=== PATIENT | female | born 1950 | race Caucasian/White ===

== ENCOUNTER 2021-07-10 15:15 | Outpatient (REF) | payer MEDICARE, SELFPAY ==
[2021-07-11 17:55] LABS: Rheumatoid Factor <8.6 IU/mL (<12.0)
[2021-07-12 09:44] LABS: IgA 171 mg/dL (85-499); IgG 719 mg/dL (610-1,616); IgM 57 mg/dL (35-242)
[2021-07-12 09:49] LABS: Cyclic Citrullinated Peptide <2.5 U/mL (<5.0)
[2021-07-12 10:31] LABS: IgE 4 IU/mL (<158)
[2021-07-12 14:07] LABS: dsDNA Ab, IgG <12.3 IU/mL (<30.0)
[2021-07-12 14:50] LABS: ANA Interpretation Positive (Negative); ANA Titer Pattern 1:160 Homogeneous
== END 2021-07-10 15:16 | disposition home or self-care (01) ==
LOC: LBN 15:15
PROVIDERS: PCP Internal Medicine; Visit Provider Student in an Organized Health Care Education/Training Program
DX: J18.9 Pneumonia, unspecified organism (principal); R93.89 Abnormal findings on diagnostic imaging of other specified body structures
CPT/HCPCS: 82784; 86200; 82785; 82787; 86038; 86225; 86431

== ENCOUNTER 2021-08-06 01:19 | Outpatient (CLI) | payer MEDICARE, SELFPAY ==
[2021-08-06 12:50] LABS: Source Nasal/Nares
[2021-08-06 20:23] LABS: COVID-19 PCR Negative (Negative)
== END 2021-08-06 01:20 | disposition home or self-care (01) ==
LOC: LBO 01:19
PROVIDERS: PCP Internal Medicine; Visit Provider Student in an Organized Health Care Education/Training Program
DX: Z20.822 Contact with and (suspected) exposure to COVID-19 (principal); Z01.818 Encounter for other preprocedural examination
CPT/HCPCS: 87635; U0005

== ENCOUNTER 2021-08-07 07:17 | Day surgery (SDC) | payer MEDICARE, SELFPAY ==
--- NOTE | 2021-08-06 14:15 | W.ANESPRE ---
General Info Date of Service Date Performed: 08/07/21 Height: 4 ft 11 in Weight: 60.328 kg Body Mass Index (BMI): 26.9 Surgical Procedure: Operation Date: 08/07/21 09:10 Proposed Procedure Side Surgeon johnson Vazquez MD Meds Allergies and Home Medications Allergies Allergy/AdvReac Type Severity Reaction Status Date / Time Tetracyclines AdvReac Unknown Verified 08/07/21 07:38 Home Medication Medication Instructions Recorded alcohol swabs (BD Alcohol Swabs) pad TOPICAL .2xd ea 07/02/21 aspirin 81 mg tablet,delayed 81 mg PO DAILY 07/02/21 release (Enteric Coated Aspirin) ciclopirox 8 % topical solution 1 applic TOPICAL QHS PRN 07/02/21 diltiazem HCl 360 mg 360 mg PO DAILY 07/02/21 capsule,extended release 24 hr dulaglutide 1.5 mg/0.5 mL 1.5 mg SUBCUT QWEEK 07/02/21 subcutaneous pen injector (Trulicity) loratadine 10 mg tablet 10 mg PO DAILY 07/02/21 metformin 1,000 mg tablet 1,000 mg PO BID 07/02/21 metoprolol succinate 25 mg 25 mg PO DAILY 07/02/21 tablet,extended release 24 hr omeprazole 20 mg capsule,delayed 20 mg PO DAILY 07/02/21 release pen needle, diabetic 31 gauge x #1200 ea 07/02/21 5/16 (BD Ultra-Fine Short Pen Needle) PFSH Active Problems Active Problems: Problem Status Onset Code Diabetes mellitus E11.9 Vitamin B deficiency E53.9 Hyperlipidemia E78.5 Obesity E66.9 Anemia D64.9 Essential hypertension I10 Allergic rhinitis J30.9 Inflammatory disease of liver K75.9 Tachycardia R00.0 Recurrent pneumonia J18.[address] R93.89 Medical History Medical History Disorder of adrenal gland Moderate aortic regurgitation Moderate mitral valve regurgitation Surgical History Surgical History History of cholecystectomy 05/26/1999 History of colonoscopy onset:11/08/2013 History of tonsillectomy 05/26/1954 History of tubal ligation 05/26/1978 Hx of appendectomy 05/26/1978 Hx of biopsy gastroesophageal junction 11/08/2013 Tobacco Smoking/Tobacco Use Status: Former Tobacco Use Alcohol Alcohol Intake: current Alcohol intake frequency: holidays/special occasions only Substance Use Substance use: Never Substance use type: does not use Vital Signs and Lab Results Lab Results Blood Type / Crossmatch: No Data to Display Complete Blood Count: No Data to Display Complete Metabolic Panel: No Data to Display Liver Function Panel: No Data to Display Coagulation Panel: No Data to Display Cardiac Panel: No Data to Display Arterial Blood Gas: No Data to Display Venous Blood Gas: No Data to Display Pancreas Panel: No Data to Display Thyroid Panel: No Data to Display Infectious Disease: Coronavirus (COVID-19)(PCR) Negative (Negative) 08/06/21 10:45 08/06/21 Coronavirus 2019 Source Nasal/Nares 08/06/21 10:45 08/06/21 Blood Cultures: No Data to Display Toxicology Panel: No Data to Display Imaging and Studies Imaging and Studies Study information below may be from another EMR and interpreted by another provider. Please see original notes in EMR for more complete details. Echocardiogram Summary: 03/2021: LVEF 65%, mild-mod , mild-mod MR, mod PHTN 40-50 mmhg Pulmonary Function Summary: 07/20/21: normal fxn. Anesthesia Assessment and Plan Anesthesia History Personal History: No History of Anesthesia Complications Family History: No Family History of Anesthesia Complications Exercise Tolerance Exercise Tolerance: Metabolic Equivalents<4 Pertinent Negatives Pertinent Negatives: No Symptoms of GERD, No Major Cardiovascular Symptoms or Complaints and No Major Pulmonary Symptoms or Complaints (Current pneumonia, quit smoking about 20 years ago) Cardiac & Pulmonary Exam Cardiac Exam: Normal S1/S2 Heart Sounds Pulmonary Exam: Rhonchi Present and Active Cough or Cold (Active pneumonia ) Implantable Cardiac Device Does patient have a Pacemaker or an ICD?: No Airway Exam Known Difficult Airway: No Mallampati Class: 3 Mouth Opening: Normal (> 3cm) Thyromental Distance: Greater than 3 cm Neck Range of Motion: Full ROM Neck Circumference: Normal Teeth Condition: Removable Dentures/Plates Upper and Edentulous ASA Classification ASA Score: ASA 3 Emergency Case?: No NPO Status NPO Status: NPO Clears >2 hours, Solids >8 hours Anesthesia Plan Resuscitation Status: Full Code Anesthesia Technique: MAC Anesthesia Airway Planned: Natural Airway Monitors Used: Standard Monitors Preoperative Comments:: 70 yo female for bronch with sedation due to recurrent pneumonia. Sig PMHx: mod , mod pHTN, DM, HTN, tachycardia, former smoker.
[2021-08-07 07:32] VITALS: BP 152/77; PULSE 88; RESP 22; TEMP 36.3; O2SAT 97
[2021-08-07] MEDS: Lactated Ringers 1,000 ML 75 ML IV (08:06)
[2021-08-07] MEDS: Lidocaine 2% Viscous 15 ML CUP (09:21)
[2021-08-07] MEDS: Lidocaine 1% Multi-Dose 50 ML VIAL (09:34)
[2021-08-07] MEDS: Lidocaine 2% Multi-Dose 50 ML VIAL (09:35)
--- NOTE | 2021-08-07 09:45 | PAPNONF_PTH ---
PATIENT: Tiffanie Shell LOC: [facility] U#:[id number] AGE/SX: 70/F ROOM: RE08/07/[address]: Sandra Vazquez MD : [id number] BED: DIS: 08/07/2021 SPEC #: [id number] RECD: 08/07/21 12:47 STATUS: TAO REQ #: [id number] VANGIE: 08/07/21 09:[address]: Sandra Vazquez DEPT: [facility] Cytology RECD BY: [place],Tiffanie ENTERED: 08/07/21 12:48 SP TYPE: ELSI SINGH DR: Jennifer Conroy Tissues: 1 - BODY FLUID CYTO(NOT S/U/N/EM)[facility] Procedures: BODY FLUID CYTO(NOT SPU/UR/NIP/ENDOM)[facility] Comments: [id number] (TOTAL VOLUME = 20 ml, SENT FRESH)
[2021-08-07 09:58] VITALS: BP 142/97; PULSE 74; RESP 24; TEMP 36.5; O2SAT 93
--- NOTE | 2021-08-07 10:15 | ROE_ITS ---
Date of service: 08/07/21 Time of Service: 09:30 Operative Note Operative Note Refer to Anesthesia Record Procedure Description: Bronchoscopy Date:08/07/21 Time:929 Indication:Abnormal Chest CT Procedure performed: Flexible bronchoscopy with broncheoalveolar lavage Sedation plan: Conscious sedation Medications used: please see seperate anesthesia documentation Informed consent was obtained after the risks and benefits or the procedure were discussed. The patient?s bilateral nasal passage was numbed with 2% topical lidocaine using cotton swabs. The patient also gurgled 2% lidocaine three times (15mL) and spit out into a kidney basin. A proper and complete OR compliant time out was performed. The therapeutic 6.2mm Olympus bronchoscope was inserted through the left nares and the vocal cords wer e visualized. The vocal cords were normal in appearance and normal function. 2cc of 2% topical lidocaine was used to anesthetize the vocal cords. The bronchoscope was inserted into the airways, where 3cc in total of 1% topical lidocaine was used the anesthetize the airways. The trachea was midline and without lesion or injury. The mucosa appeared normal and there were no signs of tracheomalacia. The jeanna was sharp. All bronchial subsegments were visualized within each lobe and showed no evidence of mucus, erythema or injury. A bronchoalveolar lavage was performed in the right upper lobe anterior segment. A total of 180 cc of saline was administered with a return of 55 cc. The fluid was slightly cloudy in appearance with visual cellular debris. The airways were inspected to verify there was no bleeding seen after BAL, which there was not. The bronchoscope was then removed and the case terminated. The patient was taken to the day surgery unit in stable condition. Samples collected:RUL BAL Testing ordered:cell differential, bacterial, fungal and AFB cultures and cytology Complications:None Sandra Vazquez MD Pulmonary & Critical Care Medicine
[2021-08-07 10:20] VITALS: BMI 26.9
--- NOTE | 2021-08-07 10:21 | W.ANESPOSTOP ---
Postoperative Evaluation Date, Time and Location Date Performed: 08/07/21 Time Performed: 10:21 Patient Location: Day Surgery Unit Vital Signs Most Recent Imported Vital Signs: Most Recent Vital Signs Temp Pulse Resp BP Pulse Ox 36.5 C 74 24 142/97 H 93 08/07/21 09:58 08/07/21 09:58 08/07/21 09:58 08/07/21 09:58 08/07/21 09:58 Pain Score Most Recent Pain Score: Most Recent Pain Score Pain Level 0 08/07/21 09:58 Assessment Mental Status: Awake (Alert & Oriented to Patient Baseline) Airway and Respiratory Function: Patent airway with normal (patient baseline) respiratory exam Cardiovascular Function: Hemodynamically Stable Hydration Status: Adequately Hydrated Nausea & Vomiting: No Nausea or Vomiting Pain: Pt. Denies Any Pain Peripheral Nerve Block: Patient did not receive a nerve block
[2021-08-07 10:30] VITALS: BP 109/51; PULSE 63; RESP 16; TEMP 36.5; O2SAT 92
--- NOTE | 2021-08-07 10:30 | RESPIRATORY ---
THERAPIST ASSIST IN [place] 08/07/21
[2021-08-08 11:45] LABS: Lymphocytes Fluid Relative 20 %; Neutrophils Fluid Relative 1 %
[2021-08-08 11:46] LABS: Mono/Macrophage Fluid Relative 79 %
[2021-08-09 09:27] LABS: Gram Smear Result Neutrophils Present
[2021-09-04 09:07] LABS: Fungus Smear No Fungi Seen
== END 2021-08-07 10:58 | disposition home or self-care (01) ==
PROVIDERS: PCP Internal Medicine; Visit Provider Student in an Organized Health Care Education/Training Program
PROC: 0BJ08ZZ Inspection of Tracheobronchial Tree, Via Natural or Artificial Opening Endoscopic (ICD-10-PCS; CPT 31622; principal; 2021-08-07 09:00)
DX: R91.8 Other nonspecific abnormal finding of lung field (principal); E11.9 Type 2 diabetes mellitus without complications; E53.8 Deficiency of other specified B group vitamins; E66.9 Obesity, unspecified; D64.9 Anemia, unspecified; J84.09 Other alveolar and parieto-alveolar conditions
CPT/HCPCS: 31624; 80162; 87070; 87102; 87116; 87205; 87206; 88104; 89051; J2250; J2405; J3010